=== PATIENT | male | born 1950 | race Caucasian/White ===

== ENCOUNTER 2020-02-16 09:53 | Outpatient (CLI) | payer OTHER, SELFPAY ==
[2020-02-16 10:25] LABS: Hemoglobin A1C 7.2 % (<5.7)
[2020-02-16 11:26] LABS: Creatinine Urine 130.57 mg/dL (40-278)
[2020-02-16 11:27] LABS: MALB Creatinine Ratio 18.5 mg/g (0-30); Microalbumin Urine Random 24.2 mg/L
[2020-02-16 11:40] LABS: Alanine Aminotransferase 24 U/L (16-63); Alkaline Phosphatase 102 U/L (46-116); Anion Gap 10.9 mmol/L (7-16); Aspartate Amino Transferase 23 U/L (15-37); Bilirubin,Total 0.8 mg/dL (0.00-1.00); Blood Urea Nitrogen 16 mg/dL (7-18); Carbon Dioxide 32 mmol/L (21-32); Chloride 98 mmol/L (98-108); Estimated Glomerular Filt Rate > 60; Glucose 132 mg/dL (70-99); Iron 160 ug/dL (65-175); LDL Cholesterol Direct 116 mg/dL (0-130); Osmolality Calculated 287 mOsm/kg (285-295); Percent Iron Saturation 46 % (12-57); Potassium 3.9 mmol/L (3.5-5.1); Sodium 137 mmol/L (136-145); Total Protein 7.4 g/dL (6.4-8.2); Vitamin B12 589 pg/mL (193-986)
== END 2020-02-16 09:54 | disposition home or self-care (01) ==
PROVIDERS: PCP Internal Medicine; Visit Provider Internal Medicine
DX: E53.8 Deficiency of other specified B group vitamins (principal); E61.1 Iron deficiency; E11.59 Type 2 diabetes mellitus with other circulatory complications; I10 Essential (primary) hypertension
CPT/HCPCS: 36415; 80053; 82043; 82607; 83036; 83540; 83550; 83721

== ENCOUNTER 2020-06-22 08:22 | Outpatient (CLI) | payer MEDICARE, SELFPAY ==
[2020-06-22 08:43] LABS: Hemoglobin A1C 7.2 % (<5.7)
[2020-06-22 10:45] LABS: Alanine Aminotransferase 35 U/L (16-63); Albumin Level 3.9 g/dL (3.4-5.0); Alkaline Phosphatase 98 U/L (46-116); Anion Gap 8 mmol/L (8-16); Aspartate Amino Transferase 22 U/L (15-37); Bilirubin,Total 0.7 mg/dL (0.00-1.00); Blood Urea Nitrogen 16 mg/dL (7-18); Calcium 9.2 mg/dL (8.5-10.1); Carbon Dioxide 32 mmol/L (21-32); Chloride 98 mmol/L (98-108); Cholesterol 188 mg/dL (0-200); Estimated Glomerular Filt Rate > 60; Glucose 152 mg/dL (70-99); LDL Cholesterol Direct 104 mg/dL (0-130); Osmolality Calculated 290 mOsm/kg (285-295); Potassium 3.6 mmol/L (3.5-5.1); Sodium 138 mmol/L (136-145); Total Protein 7.4 g/dL (6.4-8.2)
== END 2020-06-22 08:23 | disposition home or self-care (01) ==
LOC: CHSLAB 08:23
PROVIDERS: PCP Internal Medicine; Visit Provider Internal Medicine
DX: E11.69 Type 2 diabetes mellitus with other specified complication (principal); E78.00 Pure hypercholesterolemia, unspecified
CPT/HCPCS: 36415; 80053; 82465; 83036; 83721

== ENCOUNTER 2020-10-29 09:43 | Outpatient (CLI) | payer MEDICARE, SELFPAY ==
[2020-10-29 10:15] LABS: Creatinine Urine 123.12 mg/dL (40-278); Microalbumin Urine Random 56.7 mg/L
[2020-10-29 10:58] LABS: Alanine Aminotransferase 34 U/L (16-63); Albumin Level 3.9 g/dL (3.4-5.0); Alkaline Phosphatase 99 U/L (46-116); Anion Gap 9 mmol/L (8-16); Aspartate Amino Transferase 17 U/L (15-37); Bilirubin,Total 0.8 mg/dL (0.00-1.00); Blood Urea Nitrogen 13 mg/dL (7-18); Calcium 9.1 mg/dL (8.5-10.1); Carbon Dioxide 34 mmol/L (21-32); Chloride 93 mmol/L (98-108); Cholesterol 236 mg/dL (0-200); Estimated Glomerular Filt Rate > 60; Glucose 154 mg/dL (70-99); HDL Direct 63 mg/dL (40-60); LDL Cholesterol Calculated 138 mg/dL (<130); Osmolality Calculated 285 mOsm/kg (285-295); Potassium 3.1 mmol/L (3.5-5.1); Prostate Specific Antigen 0.5 ng/mL (< OR = 4.0); Sodium 136 mmol/L (136-145); Total Protein 7.3 g/dL (6.4-8.2); Triglycerides 175 mg/dL (0-150); Vitamin B12 686 pg/mL (193-986)
[2020-11-01 17:29] LABS: Vitamin D 25 Hydroxy 40 ng/mL (30-100)
== END 2020-10-29 09:44 | disposition home or self-care (01) ==
LOC: CHSLAB 09:46
PROVIDERS: PCP Internal Medicine; Visit Provider Internal Medicine
DX: E11.69 Type 2 diabetes mellitus with other specified complication (principal); E78.00 Pure hypercholesterolemia, unspecified; I10 Essential (primary) hypertension; Z12.5 Encounter for screening for malignant neoplasm of prostate; E53.8 Deficiency of other specified B group vitamins; E55.9 Vitamin D deficiency, unspecified
CPT/HCPCS: 36415; 80053; 80061; 82043; 82306; 82607; 84153; G0103

== ENCOUNTER 2021-02-22 09:54 | Outpatient (CLI) | payer MEDICARE, SELFPAY ==
[2021-02-22 10:15] LABS: Creatinine Urine 42.25 mg/dL (40-278); MALB Creatinine Ratio 31.9 mg/g (0-30); Microalbumin Urine Random 13.5 mg/L
[2021-02-22 10:17] LABS: Hemoglobin A1C 7.5 % (<5.7)
[2021-02-22 11:41] LABS: Alanine Aminotransferase 48 U/L (16-63); Albumin Level 4.1 g/dL (3.4-5.0); Alkaline Phosphatase 85 U/L (46-116); Anion Gap 10 mmol/L (8-16); Aspartate Amino Transferase 25 U/L (15-37); Bilirubin,Total 0.5 mg/dL (0.00-1.00); Blood Urea Nitrogen 13 mg/dL (7-18); Calcium 8.9 mg/dL (8.5-10.1); Carbon Dioxide 30 mmol/L (21-32); Chloride 99 mmol/L (98-108); Cholesterol 202 mg/dL (0-200); Estimated Glomerular Filt Rate > 60; Glucose 138 mg/dL (70-99); HDL Direct 62 mg/dL (40-60); LDL Cholesterol Calculated 122 mg/dL (<130); Osmolality Calculated 290 mOsm/kg (285-295); Potassium 3.9 mmol/L (3.5-5.1); Prostate Specific Antigen 0.2 ng/mL (< OR = 4.0); Sodium 139 mmol/L (136-145); Total Protein 7.6 g/dL (6.4-8.2); Triglycerides 91 mg/dL (0-150)
== END 2021-02-22 09:55 | disposition home or self-care (01) ==
LOC: CHSLAB 09:57
PROVIDERS: PCP Internal Medicine; Visit Provider Internal Medicine
DX: E11.59 Type 2 diabetes mellitus with other circulatory complications (principal); I10 Essential (primary) hypertension; E11.69 Type 2 diabetes mellitus with other specified complication; E78.00 Pure hypercholesterolemia, unspecified; E78.2 Mixed hyperlipidemia; E61.1 Iron deficiency; Z12.5 Encounter for screening for malignant neoplasm of prostate
CPT/HCPCS: 36415; 80053; 80061; 82043; 83036; 84153; G0103

== ENCOUNTER 2021-05-24 13:58 | Outpatient (RCR) | payer MEDICARE, SELFPAY ==
--- NOTE | 2021-05-24 14:58 | PTOPEVAL ---
Thank you for referring Sahra Mcdonald to [facility].? The patient is scheduled to be seen for therapy? ____x/week for ___ weeks. Please review, sign, date and return this plan of care DANTE. I agree with and certify that the following plan of care is medically necessary. Referring Physician Date Admitting Provider: Attending Provider: Kj Galo Referring Provider: *PT Outpatient Evaluation Start: 05/24/21 14:03 Freq: Status: Active Protocol: Document 05/24/21 14:05 ACR (Rec: 05/24/21 14:56 ACR [id number]) Therapy Assessment Status Assessment Status Assessment Status Evaluation Evaluation Information Problem Diagnosis R shoulder pain Onset 05/20/21 Subjective Information Patient states that his Query Text:As Reported By Patient/ shoulder has been bothering Family him over time. He states he went to the orthopedic on Thursday and got a cortizone shot which helped. He states that any overhead motions are difficult for him. He states that he moves slowly so the pain does not grab him. Patient states that he is able to perform most of his daily activities and hobbies, but has to be slow because if he gets a grabbing pain his arm feels like it is giving out on him. Prior Level of Function Activity Level (Last 3 Months) Occupation retired Hand Dominance Right Activity of Daily Living Ability Independent Indoor/Home Mobility Independent Community Mobility Independent Stairs Ability Independent Functional Cognition (Planning, Shopping Independent , Taking Medications) Cooking Yes Cleaning Yes Laundry Yes Shopping Yes Driving Yes Pain Assessment Timing of Pain Assessment Timing of Pain Assessment Assessment Pain Scale Pain Scale Used Numeric (1 - 10) Self Report Pain Assessment Right Shoulder(s) Reported Pain Level 0 Greatest Pain Intensity 2 Pain Score Pain Score 0: Self Report Interventions Used Interventions Used By Clinicians Activity or ADL's,Exercise Upper Extremity Range of Motion Scapular/ Shoulder Range of Motion Right Shoulder Flexion - Active 145 Shoulder Abduction - Active 1
--- NOTE | 2021-06-04 16:00 | PTOPEVAL ---
Thank you for referring Sahra Mcdonald to [facility].? The patient is scheduled to be seen for therapy? ____x/week for ___ weeks. Please review, sign, date and return this plan of care DANTE. I agree with and certify that the following plan of care is medically necessary. Referring Physician Date Admitting Provider: Attending Provider: Kj Galo Referring Provider: *PT Outpatient Evaluation Start: 05/24/21 14:03 Freq: Status: Active Protocol: Document 06/04/21 15:05 ACR (Rec: 06/04/21 16:00 ACR [email or web address]) Therapy Assessment Status Assessment Status Assessment Status Discharge Evaluation Information Problem Diagnosis R shoulder pain Onset 05/20/21 Subjective Information Patient reports that since Query Text:As Reported By Patient/ beginning therapy be no longer Family raises his arm above his head cautiously because he is not worried about pain. He states that he has not had any feelings of his arm giving out either. Pain Assessment Timing of Pain Assessment Timing of Pain Assessment Assessment Pain Scale Pain Scale Used Numeric (1 - 10) Self Report Pain Assessment Right Shoulder(s) Reported Pain Level 0 Greatest Pain Intensity 0 Pain Score Pain Score 0: Self Report Interventions Used Interventions Used By Clinicians Activity or ADL's,Exercise Upper Extremity Muscle Strength Testing Scapular/Shoulder Right Scapular Retraction - Rhomboid 4 Good Scapular Retraction - Middle Trapezius 4 Good Scapular Retraction - Lower Trapezius 4+ Good + Shoulder Flexion Strength 5 Normal Shoulder Abduction Strength 5 Normal Shoulder Medial Rotation Strength 5 Normal Shoulder Lateral Rotation Strength 5 Normal General Exercise General Exercises Exercise Description UBE level 2, 10 minutesfor Query Text:Record Sets, Reps, dynamic warm up in order for Resistance, and Position patient to be safely progressed TherEx - pulleys x 5 minutes - B shoulder extension blue x 30 - B shoulder row blue x 30 - B shoulder ER blue x 30 - R shoulder IR blue x 30 - R shoulder ER blue x 30 - D1 flexion and extension blue x 30 - D2 flexion and extension blue x 30
== END 2021-06-04 08:59 | disposition home or self-care (01) ==
LOC: CHSPT 13:58
DX: M25.511 Pain in right shoulder (principal); M12.811 Other specific arthropathies, not elsewhere classified, right shoulder
CPT/HCPCS: 97110; 97161

== ENCOUNTER 2021-06-14 09:10 | Outpatient (CLI) | payer MEDICARE, SELFPAY ==
[2021-06-14 09:34] LABS: Hemoglobin A1C 8.3 % (<5.7)
[2021-06-14 10:26] LABS: Alanine Aminotransferase 50 U/L (16-63); Albumin Level 3.9 g/dL (3.4-5.0); Alkaline Phosphatase 92 U/L (46-116); Anion Gap 9 mmol/L (8-16); Aspartate Amino Transferase 30 U/L (15-37); Bilirubin,Total 0.6 mg/dL (0.00-1.00); Blood Urea Nitrogen 17 mg/dL (7-18); Calcium 8.9 mg/dL (8.5-10.1); Carbon Dioxide 34 mmol/L (21-32); Chloride 94 mmol/L (98-108); Estimated Glomerular Filt Rate > 60; Glucose 169 mg/dL (70-99); LDL Cholesterol Direct 120 mg/dL (0-130); Osmolality Calculated 289 mOsm/kg (285-295); Potassium 3.6 mmol/L (3.5-5.1); Prostate Specific Antigen 0.2 ng/mL (< OR = 4.0); Sodium 137 mmol/L (136-145); Total Protein 7.4 g/dL (6.4-8.2)
[2021-06-14 11:59] LABS: Creatinine Urine 253.41 mg/dL (40-278); MALB Creatinine Ratio 51.4 mg/g (0-30); Microalbumin Urine Random 130.4 mg/L
== END 2021-06-14 09:11 | disposition home or self-care (01) ==
LOC: CHSLAB 09:13
PROVIDERS: PCP Internal Medicine; Visit Provider Internal Medicine
DX: E11.29 Type 2 diabetes mellitus with other diabetic kidney complication (principal); R80.9 Proteinuria, unspecified; E11.59 Type 2 diabetes mellitus with other circulatory complications; I15.2 Hypertension secondary to endocrine disorders; Z12.5 Encounter for screening for malignant neoplasm of prostate
CPT/HCPCS: 36415; 80053; 82043; 83036; 83721; 84153; G0103

== ENCOUNTER → 2023-01-01 08:55 | Outpatient (CLI) | payer MEDICARE, SELFPAY ==
--- NOTE | ~2023-01-01 | MR_ITS ---
MRI of the lumbar spine Clinical History: Radiculopathy Technique: Axial T2-weighted images, and sagittal T1-weighted, T2-weighted, and T2 fat-sat images wer e acquired. Findings: There is no fracture or subluxation of the lumbar spine. Vertebral bodies maintain normal h eight and alignment. No suspicious bone marrow signal abnormality seen. At L1-L2, there is minimal disc bulge and mild to moderate facet arthropathy. No central canal stenos is or neural foraminal narrowing. At L2-L3, there is diffuse disc bulge, especially the left paracentral to foraminal region with advan shonna facet arthropathy. There is left lateral recess stenosis and moderate to advanced left neural for aminal narrowing. Right neural foramen preserved. At L3-L4, there is diffuse disc bulge/protrusion with moderate facet arthropathy, resulting in severe spinal canal stenosis/thecal sac compression. There is severe bilateral neural foraminal narrowing. At L4-L5, there is diffuse disc bulge and moderate to advanced facet arthropathy. There is bilateral lateral recess stenosis, right worse than left. There is severe right neural foraminal narrowing, and mild left neural foraminal narrowing. At L5-S1, there is no disc bulge or herniation. There is no spinal canal stenosis or neural foraminal narrowing. Paravertebral soft tissues are unremarkable. Impression: Severe degenerative spondylosis at and L3-L4 and L4-L5, as detailed above. Moderate degenerative spondylosis at L2-L3, as detailed above. Reviewed, dictated and finalized at [facility]. Impression: Severe degenerative spondylosis at and L3-L4 and L4-L5, as detailed above. Moderate degenerative spondylosis at L2-L3, as detailed above.
== END ==
PROVIDERS: PCP Physician Assistant; Visit Provider Anesthesiology Pain Medicine
DX: M47.816 Spondylosis without myelopathy or radiculopathy, lumbar region (principal)
CPT/HCPCS: 72148